=== PATIENT | female | born 1975 | race African-American/Black ===

== ENCOUNTER 2017-02-09 09:23 | Inpatient (IN) ==
[2017-02-09] MEDS ORDERED: ONDANSETRON 4 MG/2 ML VIAL IV STA (09:43)
[2017-02-09] MEDS ORDERED: HYDROmorphone 2 MG/1 ML VIAL IV STA (09:43)
[2017-02-09] MEDS ORDERED: SODIUM CHLORIDE 0.9% 1,000 ML IV STA (09:43)
--- NOTE | 2017-02-09 10:01 | Emergency Department Note ---
Claudia Posadas Ashley, am scribing for, and in the presence of, Shree Jernigan MD 09 :58. Rere Posadas James D, MD, personally performed the services described in this documentation, ascribed by Sonya Taylor in my presence, and it is both accurate and complete . Arrival - Arrival Chief Complaint: Abdominal / Flank Pain Stated Complaint: severe stomach pain/back pain ED Nursing Triage Note: Pt states that she is having upper abd pain with nausea onset x 1 week - pt states that the pain is radiating to her back area Mode of Arrival: Ambulatory Limitations: No Limitations Source: Patient Time Seen by Provider: 02/09/17 09:41 - History of Present Illness HPI Narrative: Ms. Murry, a 41 year old AAF, presents with 5 day history of a new intermittent worsening upper abdominal pain accompanied with nausea. The pain radiates through to her upper back, but does not go to her arms or neck. She is so nauseous that she does not want to eat or drink, and the pain is worse with PO intake. She denies EtOH use, diarrhea, fever, CP, SOB, and other pains today. Onset (ago): day(s) (5) Consistency: intermittent Severity: moderate Quality: dull Date of Last Menstrual Period: hyster Allergies/Adverse Reactions: Allergies Allergy/AdvReac Type Severity Reaction Status Date / Time No Known Allergies Allergy Unverified 02/09/17 09:30 Review of System - Review of System Constitutional: Absent: chills, fever Eyes: Present: as per HPI Head/Ears/Nose/Throat: Absent: epistaxis, nasal drainage Respiratory: Absent: cough, respiratory distress Cardiovascular: Absent: chest pain, palpitations Gastrointestinal: Present: abdominal pain, nausea, vomiting. Absent: diarrhea Genitourinary female: Present: as per HPI Musculoskeletal: Present: upper back pain. Absent: lower back pain, neck pain Skin: Present: as per HPI Neurological: Absent: headache, weakness, numbness, paresthesias Psychiatric: Present: as per HPI Endocrine: Present: as per HPI Hematological/Lymphatic: Present: as per HPI Allergic/Immunologic: Present: as per HPI Medical,Surgical,& Family Hx - Medical History Cardio: No history of: Hypertension Endocrine: No history of: Diabetes Mellitus (IDDM), Diabetes Mellitus (NIDDM) Respiratory: No history of: Asthma - Surgical History Thoracic Surgeries: Patient denies;: Nephrectomy - Family History Family History: noncontributory - Social History Smoking Status: Never smoker Frequency of Alcohol Use: None Type of Drug Use: None Functional capacity: independent ambulation Exam Vital Signs: Vital Signs Temperature 97.4 F L 02/09/17 09:41 Pulse Rate 75 02/09/17 09:41 Respiratory Rate 20 02/09/17 09:41 Blood Pressure 137/87 02/09/17 09:41 O2 Sat by Pulse Oximetry 98 02/09/17 09:30 GENERAL: This is a well-nourished well-developed black female in no apparent distress. VITAL SIGNS: Reviewed HEENT: Head is atraumatic and normocephalic. Pupils are equal round react to light. Extraocular movements are intact. Oropharynx is benign with moist mucous membranes. NECK: Neck is soft and supple without tenderness. There are no masses. There is no lymphadenopathy. LUNGS: Lungs are clear to auscultation. Chest rises symmetrically. There is no chest wall tenderness. CV: Heart is regular rate and rhythm without murmurs rubs or gallops. ABDOMEN: Abdomen is soft, minimal epigastric tenderness to palpation without rebound or guarding. There are no abdominal abnormal masses palpated. There is no organomegaly. Bowel sounds are present and active. SKIN: Skin is warm and dry. No rash. EXTREMITIES: Patient has full range of motion without tenderness. There is no pedal edema. NEUROLOGIC: Awake alert and oriented 4. Cranial nerves II through XII are grossly intact. Motor is 5 over 5 in all extremities bilaterally. Course - Consultations Consultation #1: Discussed with Dr. Rockwell. Patient will be seen in the emergency department. Time: 11:37 Results - Labs CBC & BMP: 02/09/17 09:55 02/09/17 09:55 Lab Results: I have reviewed the patients labs Labs: Laboratory Tests 02/09/17 02/09/17 09:55 09:55 Total Bilirubin 2.50 H AST 108 H ALT 122 H Alkaline Phosphatase 169 H Troponin I < 0.015 Lipase 129.0 Urine WBC 6 - Diagnostic Findings Procedure: Abdominal x-ray: image reviewed by me (Nonspecific gas pattern, no free air, gas in the right), Chest x-ray: image reviewed by me (No infiltrates, no pleural effusions.), Ultrasound: report reviewed by me (Gallbladder ultrasound: Multiple gallstones with gallbladder wall thickening consistent with cholecystitis.) Critical Care Time Critical Care Time: No Disposition Clinical Impression: Epigastric pain, Cholelithiasis with cholecystitis Case discussed with: patient Disposition: Still a Patient Condition: Stable Time of Disposition: 11:37
[2017-02-09 10:08] LABS: Basophils % 0.6 % (0.0-0.8); Eosinophils # 0.1 10*3/uL (0.0-0.87); Eosinophils % 1.5 % (0.00-10.9); Hematocrit 36.1 VOL% (35.7-47.0); Hemoglobin 11.9 GM/DL (12.0-16.0); Immature Granulocytes % 0.4 %; Immature Granulocytes Absolute 0.02 #; Lymphocytes # 1.3 10*3/uL (1.4-4.0); Lymphocytes % 26.9 % (21.3-54.2); Mean Corpuscular Hemoglobin 27 PG (27-34); Mean Corpuscular Volume 82.4 FL (87-102); Mean Platelet Volume 10.7 FL (9.6-12.0); Monocytes # 0.5 10*3/uL (0.11-0.8); Monocytes % 9.6 % (1.7-12.7); Neutrophils # 2.9 10*3/uL (1.4-7.4); Platelet Count 265 T/CUMM (130-400); Red Blood Count 4.38 MC/CUMM (3.8-5.5); White Blood Count 4.8 T/CUMM (4-12)
[2017-02-09] MEDS ORDERED: HYDROmorphone 2 MG/1 ML VIAL ONE (10:15)
[2017-02-09] MEDS ORDERED: ONDANSETRON 4 MG/2 ML VIAL ONE ×2 (10:15→15:26)
--- NOTE | 2017-02-09 10:38 | Ultrasound Report ---
History his back and epigastric pain Hepatic size and echotexture is normal There are multiple small gallstones. Gallbladder wall measures up to 4 mm The common bile duct measures up to 9 mm. The distal common duct is obscured by bowel gas. Distal common duct stone could easily be obscured Visualized pancreas and proximal IVC and aorta are normal in size No right renal hydronephrosis seen Impression: 1. Cholelithiasis with mild nonspecific gallbladder wall thickening 2. Biliary ductal prominence. Correlation with laboratory values recommended PROCEDURE INTERPRETED AT [facility] [place] DEPARTMENT OF RADIOLOGY Final Report Signed by: Dr. Nelli Hayward
[2017-02-09 10:43] LABS: Apearance,Urine CLOUDY (Clear); Blood, Urine Negative (Negative); Glucose,Urine (UA) 50 mg/dL (Negative); Ketones,Urine 20 mg/dL (Negative); Mucus,Urine Many /LPF (Occasional); Nitrite,Urine Negative (Negative); Protein,Urine 30 MG/DL; Squamous Epithelial Cell,Urine Moderate /HPF (0-10); Urine Color Amber (Yellow); Urine Specific Gravity 1.025 (1.001-1.035); WBC,Urine 6 /HPF (0-6)
[2017-02-09 10:44] LABS: Bilirubin,Urine Small mg/dL (Negative)
[2017-02-09 10:51] LABS: Alanine Aminotransferase 122 U/L (13-56); Albumin 3.7 G/DL (3.4-5.0); Alkaline Phosphatase 169 U/L (45-117); Aspartate Amino Transferase 108 U/L (0-37); Blood Urea Nitrogen 4 MG/DL (7-18); Calcium 9.1 MG/DL (8.5-10.1); Glucose 102 MG/DL (74-106); Osmolality,Calculated 277.3 MOS/KG (273-304); Potassium 3.1 MMOL/L (3.5-5.1); Sodium 141 MMOL/L (136-145); Total Protein 7.8 G/DL (6.4-8.3); Troponin I Only < 0.015 NG/ML (0.00-0.045)
--- NOTE | 2017-02-09 11:31 | XRay Report ---
Exam: Chest 2 views Date: February 09, 2017 at 10:51 AM Comparison: None Reason: Epigastric pain Findings: The cardiac silhouette is upper normal in size, possibly secondary to the poor inspiratory depth. No focal consolidation, pneumothorax or pleural effusion is identified. No acute osseous process is seen. Impression: No acute cardiopulmonary process is identified. PROCEDURE INTERPRETED AT [facility] DEPARTMENT OF RADIOLOGY Final Report Signed by: Dr. Ventura Huntley
--- NOTE | 2017-02-09 11:32 | XRay Report ---
Referring Physician: Shree Jernigan Exam: XR abdomen 2V Date: February 09, 2017 at 10:51 AM Reason: Epigastric pain Comparison: None Findings: There is no evidence of bowel obstruction or free air. The renal shadows are largely obscured. There are several small calcifications within the pelvis, which are favored to represent pelvic phleboliths. No acute osseous process is seen. Impression: No acute process is identified. PROCEDURE INTERPRETED AT [facility] DEPARTMENT OF RADIOLOGY Final Report Signed by: Dr. Ventura Huntley
--- NOTE | 2017-02-09 13:06 | General Surg History&Physical ---
Assessment and Plan (1) Cholelithiasis with cholecystitis Status: Acute Assessment and plan: Impression: Acute cholecystitis with choledocholithiasis next Plan: LFTs elevated and her common bile duct is dilated. She is very tender in the right upper quadrant with mild gallbladder wall thickening. I suspect she has acute cholecystitis with choledocholithiasis. I discussed the case with Dr. marion who plans for ERCP in the morning. We'll admit give her clear liquids and start antibiotics. Current Visit: Yes History of Present Illness Chief complaint: abdominal pain History of present illness: Ms. Murry is a 41 year old female with a one-week history of epigastric and right upper quadrant abdominal pain. She states the episode initially started last week when she felt a hot spell followed by epigastric and right upper quadrant abdominal pain after she ate. The pain radiated to the right flank. The pain subsided and returned again 3 days later after she ate something else. It has been fairly constant since then. She has periods of nausea but no vomiting. She states she is otherwise healthy and takes no medication. She has no chest pain or heart problems. She denies shortness of breath but states it only hurts to take a deep breath because of the abdominal pain experienced. Allergies Allergy/AdvReac Type Severity Reaction Status Date / Time No Known Allergies Allergy Unverified 02/09/17 09:30 Medical,Surgical,& Family Hx - Medical History Medical History: noncontributory Cardio: No history of: Hypertension Endocrine: No history of: Diabetes Mellitus (IDDM), Diabetes Mellitus (NIDDM) Respiratory: No history of: Asthma - Surgical History Thoracic Surgeries: Patient denies;: Nephrectomy - Social History Smoking Status: Never smoker Frequency of Alcohol Use: None Type of Drug Use: None Exam - Constitutional Vitals: Period Temp Pulse Resp BP Sys/Leija Pulse Ox Last 24 Hr 97.4 F-97.4 F 75-75 20-20 137-137/87-87 98 General appearance: no acute distress - Head Head exam: Present: normocephalic - Neck Neck exam: Present: normal inspection - Respiratory Respiratory exam: Present: clear to auscultation bilaterally - Cardiovascular Cardiovascular exam: Present: RRR - GI/Abdominal GI/Abdominal exam: Present: soft (tender to palpation in the epigastric and right upper quadrant. Positive Watkins's. Obese but I don't detect distention. No peritoneal signs.) - Extremities Exam Extremities exam: Present: normal inspection - Neurological Exam Neurological exam: Present: alert Speech: Present: normal - Skin Skin exam: Present: normal color 12 point system: reviewed and no additional remarkable complaints except as stated Results - Labs CBC & BMP: 02/09/17 09:55 02/09/17 09:55 Lab Results: I have reviewed the past 24 hour labs
--- NOTE | 2017-02-09 13:12 | Gastrointestinal Consult Note ---
Assessment and Plan (1) Cholelithiasis with cholecystitis Status: Acute Assessment and plan: 4/6-1 week history of right upper quadrant abdominal pain radiating to back with nausea and vomiting. Findings on gallbladder ultrasound of cholelithiasis with dilated common bile duct at 9 mm. Elevated LFTs. Plan for ERCP tomorrow morning and tentative laparoscopic cholecystectomy to follow tomorrow afternoon by Dr. Rockwell. Plan an addendum to followed by Dr. Daniels. Current Visit: Yes History of Present Illness Chief complaint: Abdominal pain, nausea, vomiting History of present illness: Ms. Murry is a 41 year old female who presented to the ER with a one-week history of right upper quadrant abdominal pain with associated nausea and vomiting. Patient states she was in her usual state of health until a week ago when she had a sudden onset of right upper quadrant abdominal pain that radiated around to her back. This was also associated with some nausea and vomiting. Patient states this is continued over the past week in which the pain has been constant however wavering in severity. She states that she has eaten very little since onset of pain due to it worsened her symptoms. She denies any fever or chills but states when she does have the pain she becomes diaphoretic. Patient states the pain at times prevents her from breathing deep as well. On admission she was found to have elevated LFTs and a gallbladder ultrasound she was noted to have cholelithiasis with nonspecific gallbladder wall thickening and a common bile duct at 9 mm. She takes no routine medications and states that she is in good health. Allergies Allergy/AdvReac Type Severity Reaction Status Date / Time No Known Allergies Allergy Unverified 02/09/17 09:30 Medical,Surgical,& Family Hx - Medical History Cardio: No history of: Hypertension Endocrine: No history of: Diabetes Mellitus (IDDM), Diabetes Mellitus (NIDDM) Respiratory: No history of: Asthma - Surgical History Thoracic Surgeries: Patient denies;: Nephrectomy - Social History Smoking Status: Never smoker Frequency of Alcohol Use: None Type of Drug Use: None 12 point system: reviewed and no additional remarkable complaints except as stated - Constitutional Constitutional: Present: as per HPI - EENT Eyes: Present: as per HPI Ears: Present: as per HPI Nose, mouth and throat: Present: as per HPI - Cardiovascular Cardiovascular: Present: as per HPI - Respiratory Respiratory: Present: as per HPI - Gastrointestinal Gastrointestinal: Present: as per HPI, abdominal pain, nausea, vomiting - Genitourinary Genitourinary: Present: as per HPI - Musculoskeletal Musculoskeletal: Present: as per HPI - Neurological Neurological: Present: as per HPI - Psychiatric Psychiatric: Present: as per HPI - Endocrine Endocrine: Present: as per HPI - Hematologic/Lymphatic Hematologic/Lymphatic: Present: as per HPI Exam - Constitutional Vitals: Period Temp Pulse Resp BP Sys/Leija Pulse Ox Last 24 Hr 97.4 F-97.4 F 75-75 20-20 137-137/87-87 98 General appearance: normal weight, no acute distress - Head Head exam: Present: normal inspection, normocephalic - Eye Eye exam: Present: other (Lids and conjunctive are unremarkable). Absent: scleral icterus - ENT ENT exam: Present: normal exam, normal oropharynx - Neck Neck exam: Present: normal inspection - Respiratory Respiratory exam: Present: clear to auscultation bilaterally. Absent: rales, rhonchi, wheezes - Cardiovascular Cardiovascular exam: Present: regular rate and rhythm. Absent: diastolic murmur , JVD, systolic murmur - GI/Abdominal GI/Abdominal exam: Present: normal bowel sounds, tenderness, soft. Absent: ascites, distended, mass, organomegaly - Extremities Exam Extremities exam: Present: normal inspection, full ROM - Back Exam Back exam: Present: normal inspection - Neurological Exam Neurological exam: Present: alert, oriented X3 - Psychiatric Psychiatric exam: Present: normal affect, normal mood - Skin Skin exam: Present: normal color, warm, dry Results - Labs CBC & BMP: 02/09/17 09:55 02/09/17 09:55 Lab Results: I have reviewed the past 24 hour labs - Diagnostic Findings Procedure: Ultrasound: report reviewed by me
[2017-02-09] MEDS ORDERED: ENOXAPARIN 100 MG/ML SYRINGE SUBCUT ONE (15:25)
[2017-02-09] MEDS ORDERED: MORPHINE 2 MG/1 ML SYRINGE ONE (15:26)
[2017-02-09] MEDS ORDERED: NITROGLYCERIN 2% OINT 1 INCH/GM PACK TOP ONE (15:26)
[2017-02-09] MEDS ORDERED: ASPIRIN 325 MG TABLET ONE (15:26)
[2017-02-09] MEDS ORDERED: ONDANSETRON 4 MG/2 ML VIAL IV PRN (16:05)
[2017-02-09] MEDS ORDERED: ACETAMINOPHEN 325 MG TABLET PO PRN (16:05)
[2017-02-09] MEDS: PIPERACILLIN/TAZOBACTAM 3,375 MG in SODIUM CHLORIDE 0.9% 100 ML IV SCH (17:09)
[2017-02-09] MEDS: DOCUSATE SODIUM 100 MG CAPSULE PO SCH (20:38)
[2017-02-10] MEDS: PIPERACILLIN/TAZOBACTAM 3,375 MG in SODIUM CHLORIDE 0.9% 100 ML IV SCH ×3 (00:53→17:15)
[2017-02-10] MEDS: DEXTROSE 5% NACL 0.45% 1,000 ML IV SCH ×3 (00:53→23:35)
[2017-02-10 08:03] LABS: Basophils % 0.4 % (0.0-0.8); Eosinophils # 0.1 10*3/uL (0.0-0.87); Eosinophils % 2.2 % (0.00-10.9); Hematocrit 32.1 VOL% (35.7-47.0); Hemoglobin 10.3 GM/DL (12.0-16.0); Immature Granulocytes % 0.4 %; Immature Granulocytes Absolute 0.02 #; Lymphocytes # 1.3 10*3/uL (1.4-4.0); Lymphocytes % 28.9 % (21.3-54.2); Mean Corpuscular HGB Conc 32.1 GM/DL (32-36); Mean Corpuscular Hemoglobin 27 PG (27-34); Mean Corpuscular Volume 83.6 FL (87-102); Mean Platelet Volume 10.9 FL (9.6-12.0); Monocytes # 0.4 10*3/uL (0.11-0.8); Monocytes % 8.9 % (1.7-12.7); Neutrophils # 2.7 10*3/uL (1.4-7.4); Neutrophils % 59.2 % (38.7-73.9); Platelet Count 232 T/CUMM (130-400); Red Blood Count 3.84 MC/CUMM (3.8-5.5); Red Cell Distribution Width 14.4 % (9.3-17.3); White Blood Count 4.5 T/CUMM (4-12)
--- NOTE | 2017-02-10 08:40 | General Surgery Progress Note ---
Assessment and Plan (1) Cholelithiasis with cholecystitis Status: Acute Assessment and plan: Impression: Acute cholecystitis with choledocholithiasis next Plan: For ERCP today. Plan for cholecystectomy Monday. Current Visit: Yes Subjective Patient reports: Present: no new complaints Narrative: Pain controlled. She is nothing by mouth for ERCP today. Exam - Constitutional Vitals: Period Temp Pulse Resp BP Sys/Leija Pulse Ox Last 24 Hr 97.1 F-98.7 F 62-80 18-19 120-139/63-89 95-98 General appearance: no acute distress - Head Head exam: Present: normocephalic - ENT Mouth exam: Present: normal external inspection - Neck Neck exam: Present: normal inspection - Respiratory Respiratory exam: Present: clear to auscultation bilaterally - Cardiovascular Cardiovascular exam: Present: RRR - GI/Abdominal GI/Abdominal exam: Present: soft (tenderness in the right upper quadrant unchanged. No peritoneal signs.) - Extremities Exam Extremities exam: Present: normal inspection - Back Exam Back exam: Present: normal inspection - Neurological Exam Neurological exam: Present: alert, oriented X3 Speech: Present: normal - Skin Skin exam: Present: normal color Results - Labs CBC & BMP: 02/10/17 07:39 02/10/17 07:39
[2017-02-10] MEDS: DOCUSATE SODIUM 100 MG CAPSULE PO SCH ×2 (09:30→21:26)
[2017-02-10] MEDS ORDERED: fentaNYL 100 MCG/2 ML VIAL ONE (13:39)
[2017-02-10] MEDS ORDERED: MIDAZOLAM 2 MG/2 ML VIAL ONE (13:39)
--- NOTE | 2017-02-10 14:24 | History and Physical Update ---
History and Physical Update - History and Physical H&P was reviewed, the patient examined and there: are no changes in the patients condition since last H&P was completed. - Physical Exam Mental Status: alert and oriented Heart: regular rate and rhythm Lung: clear to auscultation Abdomen: within normal limits Vitals: within normal limits
[2017-02-10] MEDS ORDERED: GLUCAGON 1 MG VIAL ONE (14:26)
--- NOTE | 2017-02-10 14:39 | Operative Note ---
Date of procedure: 02/10/17 Pre-op diagnosis: Elevated liver tests, gallstones, dilated common bile Procedure: Procedure: Endoscopic retrograde cholangiopancreatography with common bile duct sphincterotomy and stone/sludge removal with balloon Brief clinical abstract: Patient is a 41-year-old female admitted with biliary type pain. She is noted to have elevated liver tests with gallstones on ultrasound and dilated common bile duct. Procedure findings: After informed consent was obtained, patient was placed in the prone position. Therapeutic video duodenoscope was inserted into the upper esophagus and blind fashion with no resistance encountered. Esophageal mucosa appeared normal. Stomach appeared normal including retroflexed view. The pyloric channel, duodenal bulb, second and third portion of the duodenum including the appearance of the ampulla were normal. Common bile duct was selectively cannulated with sphincterotome. Biliary tree was filled with contrast. Common bile duct and common hepatic duct were dilated to over 12 mm maximally. Intrahepatics were mildly dilated. Filling defect was visible in the distal common bile duct consistent with stone/sludge 0.035 inch guidewire was advanced into the right intrahepatic system. Common bile duct sphincterotomy was performed to approximately 10 mm diameter. Sphincterotome was withdrawn. Occlusion balloon was advanced over the wire into the proximal common hepatic duct and dragged distally. Moderate amount of sludge like stone material passed into the duodenum. 3 separate passes were made with a balloon. Occlusion cholangiogram was obtained on final pass. Some air bubbles were noted but no stones seen. There was excellent drainage through the sphincterotomy opening. 12 mm occlusion balloon passed through the sphincterotomy with slight resistance. Pancreatogram was not obtained. Impression: #1 choledocholithiasis-status post endoscopic removal as above #2 dilated biliary tree related to #1 Recommendations: Cholecystectomy as planned. Anesthesia: MAC Surgeon / Physician: Michael Daniels Estimated blood loss: none Specimens: none sent Condition: stable Disposition: post procedure unit Results - Labs CBC & BMP: 02/10/17 07:39 02/10/17 07:39 Discharge Plan - Discharge Medications No Action Dextroamphetamine/Amphetamine [Adderall 15 mg Tablet] 15 mg PO BID PRN PRN Reason: Anxiety - Follow Up or Referral - Forms/Instructions
[2017-02-10] MEDS ORDERED: LIDOCAINE 1% 5 ML VIAL ONE (14:48)
[2017-02-10] MEDS ORDERED: PROPOFOL 200 MG/20 ML VIAL IV ONE (14:48)
--- NOTE | 2017-02-10 14:50 | Anesthesia ---
Anesthesia Post OP - Post Ansesthetic Evaluation Patient seen in post op: Yes Resp: within normal limits CV: within normal limits Mental: within normal limits Temp: within normal limits [id number]: within normal limits Nausea and Vomiting: within normal limits Pain: within normal limits
--- NOTE | 2017-02-10 15:07 | Fluoroscopy Report ---
[place] ERCP w sphincterotomy Indication: Abdominal pain. Elevated LFTs. ERCP: Fluoroscopy time 3 minutes 0 seconds, 15 images. Omnipaque 240, 20 cc injected. Findings: Balloon sweep of the CBD is performed through a presumed sphincterotomy. The common hepatic and common bile duct are minimally prominent, probably 10 mm diameter. There is no cystic duct filling. Last image, an air bubble is present in the distal CBD. Impression: Slightly prominent biliary collecting system as described. Balloon sweep and presumed sphincterotomy. PROCEDURE INTERPRETED AT [facility] DEPARTMENT OF RADIOLOGY Final Report Signed by: Hung Brower M.D.
[2017-02-10] MEDS: PANTOPRAZOLE 40 MG TABLET PO SCH (17:17)
[2017-02-11] MEDS: PIPERACILLIN/TAZOBACTAM 3,375 MG in SODIUM CHLORIDE 0.9% 100 ML IV SCH ×3 (01:55→17:16)
[2017-02-11 03:16] LABS: Basophils % 0.4 % (0.0-0.8); Eosinophils # 0.1 10*3/uL (0.0-0.87); Eosinophils % 2.4 % (0.00-10.9); Hematocrit 29.8 VOL% (35.7-47.0); Hemoglobin 9.8 GM/DL (12.0-16.0); Immature Granulocytes % 0.4 %; Immature Granulocytes Absolute 0.02 #; Lymphocytes # 1.6 10*3/uL (1.4-4.0); Lymphocytes % 31.7 % (21.3-54.2); Mean Corpuscular HGB Conc 32.9 GM/DL (32-36); Mean Corpuscular Hemoglobin 27 PG (27-34); Mean Corpuscular Volume 82.1 FL (87-102); Mean Platelet Volume 11.4 FL (9.6-12.0); Monocytes # 0.4 10*3/uL (0.11-0.8); Monocytes % 8.7 % (1.7-12.7); Neutrophils # 2.8 10*3/uL (1.4-7.4); Neutrophils % 56.4 % (38.7-73.9); Platelet Count 219 T/CUMM (130-400); Red Blood Count 3.63 MC/CUMM (3.8-5.5); Red Cell Distribution Width 14.4 % (9.3-17.3)
[2017-02-11 03:20] LABS: Bilirubin,Direct 0.7 MG/DL (0.0-0.20); Bilirubin,Indirect 0.4 MG/DL (0.0-1.0); Bilirubin,Total 1.1 MG/DL (0.2-1.0); Calcium 8.4 MG/DL (8.5-10.1); Osmolality,Calculated 282.8 MOS/KG (273-304); Potassium 3.3 MMOL/L (3.5-5.1); Total Protein 6.3 G/DL (6.4-8.3)
--- NOTE | 2017-02-11 08:38 | Event Note ---
02/11/2017. Patient is status post ERCP with sphincterotomy and removal of stones from the common duct. She is doing well and is hungry and will go ahead and resume some food this weekend. Abdomen is soft and nontender at this point. She is set up for surgery on Monday to remove the gallbladder.
[2017-02-11] MEDS: DOCUSATE SODIUM 100 MG CAPSULE PO SCH ×2 (11:22→20:37)
[2017-02-11] MEDS: PANTOPRAZOLE 40 MG TABLET PO SCH (11:22)
[2017-02-11] MEDS: DEXTROSE 5% NACL 0.45% 1,000 ML IV SCH (17:11)
[2017-02-12] MEDS: PIPERACILLIN/TAZOBACTAM 3,375 MG in SODIUM CHLORIDE 0.9% 100 ML IV SCH ×3 (01:18→17:29)
[2017-02-12 05:07] LABS: Basophils % 0.5 % (0.0-0.8); Eosinophils # 0.2 10*3/uL (0.0-0.87); Eosinophils % 2.7 % (0.00-10.9); Hematocrit 31.2 VOL% (35.7-47.0); Immature Granulocytes % 0.3 %; Immature Granulocytes Absolute 0.02 #; Lymphocytes # 1.9 10*3/uL (1.4-4.0); Lymphocytes % 32.2 % (21.3-54.2); Mean Corpuscular HGB Conc 32.1 GM/DL (32-36); Mean Corpuscular Hemoglobin 27 PG (27-34); Mean Corpuscular Volume 84.1 FL (87-102); Mean Platelet Volume 11.2 FL (9.6-12.0); Monocytes # 0.4 10*3/uL (0.11-0.8); Monocytes % 7.2 % (1.7-12.7); Neutrophils # 3.4 10*3/uL (1.4-7.4); Neutrophils % 57.1 % (38.7-73.9); Platelet Count 216 T/CUMM (130-400); Red Blood Count 3.71 MC/CUMM (3.8-5.5); Red Cell Distribution Width 14.2 % (9.3-17.3)
[2017-02-12 05:40] LABS: Albumin 2.9 G/DL (3.4-5.0); Bilirubin,Total 0.7 MG/DL (0.2-1.0); Calcium 8.3 MG/DL (8.5-10.1); Osmolality,Calculated 276.4 MOS/KG (273-304); Potassium 3.3 MMOL/L (3.5-5.1); Total Protein 6.5 G/DL (6.4-8.3)
[2017-02-12] MEDS: DOCUSATE SODIUM 100 MG CAPSULE PO SCH (09:06)
[2017-02-12] MEDS: PANTOPRAZOLE 40 MG TABLET PO SCH (09:15)
[2017-02-12] MEDS: DEXTROSE 5% NACL 0.45% 1,000 ML IV SCH ×3 (09:18→17:30)
--- NOTE | 2017-02-12 11:20 | Event Note ---
02/12/2017. Patient's afebrile and labs look in pretty good shape of the liver function studies still slightly elevated. She is for laparoscopic cholecystectomy in the morning and is ready for surgery.
[2017-02-13] MEDS: DEXTROSE 5% NACL 0.45% 1,000 ML IV SCH ×3 (01:29→15:23)
[2017-02-13] MEDS: PIPERACILLIN/TAZOBACTAM 3,375 MG in SODIUM CHLORIDE 0.9% 100 ML IV SCH ×3 (01:30→17:16)
[2017-02-13] MEDS: DOCUSATE SODIUM 100 MG CAPSULE PO SCH ×3 (01:31→20:49)
[2017-02-13] MEDS ORDERED: SODIUM CHLORIDE 0.9% 100 ML IV ONE (09:11)
[2017-02-13] MEDS: PANTOPRAZOLE 40 MG TABLET PO SCH (09:14)
[2017-02-13] MEDS ORDERED: LIDOCAINE 2%/EPI 20 ML VIAL ONE (14:18)
[2017-02-13] MEDS ORDERED: BUPIVACAINE MPF 0.25% /EPI 30 ML VIAL ONE (14:18)
[2017-02-13] MEDS ORDERED: TISSUE ADHESIVE 1 EACH APPLICATOR TOP ONE (14:18)
--- NOTE | 2017-02-13 16:07 | Event Note ---
Late entry: Patient seen at approximately 930 this morning No significant events over the weekend. She status post ERCP. She was doing well and her pain had improved. She still had moderate right upper quadrant tenderness but it was much improved. I discussed cholecystectomy with her and she wanted to proceed today as soon as possible. The procedure and has not performed and the anticipated recovery were all discussed. Risks of the procedure including bleeding, infection, damage to surrounding structures including the biliary tree, need for further surgery were all discussed in detail.
--- NOTE | 2017-02-13 16:17 | Operative Note ---
Date of procedure: 02/13/17 Pre-op diagnosis: acute cholecystitis, choledocholithiasis Post-op diagnosis: same Procedure: Procedure performed: #1 laparoscopic cholecystectomy with intraoperative cholangiogram #2 supervision and interpretation of fluoroscopy #3 laparoscopic lysis of adhesions #4 modifier 22. Procedure in detail: After informed consent was obtained the patient was taken operating suite and laid supine on the operating table. After general anesthesia was induced the abdomen was prepped and draped in usual sterile fashion. After procedural pause local anesthetic and straighten the skin and subcutaneous taste tissue just above the umbilicus. Incision was made and dissection carried down through skin and soft tissue. Fascia identified and grasped with Rossi's and elevated. Fascial incision was made and the abdominal cavity was entered bluntly. Finger sweep revealed no adhesions. Patel trocar was placed under direct visualization. Pneumoperitoneum achieved. Camera inserted. Bowel and mesentery were inspected and found be free of any violation. Next patient was placed in reverse Trendelenburg position and rotated to the left. There were significant adhesions in the right upper quadrant all along the liver edge and the anterior surface of the liver up to the abdominal wall. This continued along the liver edge all the way to the left lobe of the liver. There were other adhesions to the anterior abdominal wall in the region of the transverse colon. I safely placed 2 right upper quadrant trochars under visualization. Camera was moved to the lateral trocar site and then the adhesions were lysed. Once all the adhesions were lysed I could put the epigastric 12 mm trocar and under visualization. All the anterior adhesions from the liver to the abdominal wall were lysed so that the gallbladder could be retracted up over the edge of the liver. The gallbladder was identified and so retracted. The gallbladder was thick and mildly edematous. Infundibular gallbladder retracted toward the right hip. Dissection was then carried out from a lateral to medial approach and the triangle of Harrison. Cystic duct and cystic artery were identified. Cystic duct appeared dilated. The artery appeared somewhat larger than usual. I was able to create a window at the junction of the cystic duct and neck of the gallbladder. Then removed the grasper to occlude the gallbladder at the junction with the cystic duct and made a partial transection on the cystic duct. The cystic duct was thick walled. Countered and a cholangiocatheter inserted and secured with a clip. A second clip was ejected from the clip gun and later removed after the cholangiogram. Cholangiogram performed. Common bile duct appeared dilated but contrast was seen easily flowing into the small bowel. I placed some mild pressure in the region of the distal common bile duct and obtained retrograde flow. The duct appeared patent without any obvious filling defects. The insertion of the catheter appeared fairly far away from the dilated duct with its tip near the confluence of the cystic duct and common bile duct. The cystic duct was dilated it was nowhere near as dilated as the common bile duct. The cholangiocatheter was removed and 2 clips placed across the cystic duct just distal to the partial transection and the transection was completed. The clips appeared to course completely over the duct. Cystic artery was triple clipped and transected and the gallbladder was removed from the gallbladder fossa using hook cautery and placed in the Endo Catch sac. Right upper quadrant was thoroughly irrigated and suctioned. Clips inspected found be intact no leakage of bilious or sanguinous fluid. A 10 Vincentian flat Octavio drain was then placed in the gallbladder fossa and brought out through one of the 5 mm trocar sites and secured in place with 2-0 nylon suture. The remaining trochars were removed as the abdomen desufflated. The gallbladder retrieved with the Endo Catch sac to the Patel trocar site. There was good hemostasis throughout the procedure and the fascia was closed with 0 Vicryl [id number] interrupted suture. Wounds were irrigated and suction skin closed with andrew. Sterile dressings applied. Patient was extubated and taken recovery room in stable condition. All lap and needle counts were correct at the end of the case. I'm adding modifier 22 for the extensive time and effort required beyond a normal procedure of this type. This was due to the adhesions in the right upper quadrant which required tedious adhesio lysis prior to being able to proceed with cholecystectomy. Easily double the operative time. Anesthesia: GETA Surgeon / Physician: Moisés Rockwell Estimated blood loss: other (less than 25 mL) Specimens: other (gallbladder) Condition: stable Disposition: PACU Results - Labs CBC & BMP: 02/12/17 04:49 02/12/17 04:49 Discharge Plan - Discharge Medications No Action Dextroamphetamine/Amphetamine [Adderall 15 mg Tablet] 15 mg PO BID PRN PRN Reason: Anxiety - Follow Up or Referral Follow Up: Moisés Rockwell MD [Physician] - - Forms/Instructions Instructions: Laparoscopic Cholecystectomy (DC)
[2017-02-13] MEDS ORDERED: SEVOFLURANE 1 UNIT/15 MINUTE INH ONE (16:28)
[2017-02-13] MEDS ORDERED: PROPOFOL 200 MG/20 ML VIAL IV ONE (16:28)
[2017-02-13] MEDS ORDERED: ONDANSETRON 4 MG/2 ML VIAL ONE (16:29)
[2017-02-13] MEDS ORDERED: GLYCOPYRROLATE 0.4 MG/2 ML VIAL ONE (16:29)
[2017-02-13] MEDS ORDERED: MIDAZOLAM 2 MG/2 ML VIAL ONE (16:29)
[2017-02-13] MEDS ORDERED: KETOROLAC 30 MG/1 ML VIAL ONE (16:29)
[2017-02-13] MEDS ORDERED: NEOSTIGMINE 10 MG/10 ML VIAL ONE (16:30)
[2017-02-13] MEDS ORDERED: ACETAMINOPHEN 1,000 MG/100 ML VIAL IV ONE (16:30)
[2017-02-13] MEDS ORDERED: ROCURONIUM 100 MG/10 ML VIAL IV ONE (16:30)
[2017-02-13] MEDS ORDERED: LACTATED RINGERS 1,000 ML IV ONE (16:30)
[2017-02-13] MEDS ORDERED: ONDANSETRON 4 MG/2 ML VIAL IV PRN (16:31)
[2017-02-13] MEDS: HYDROmorphone 2 MG/1 ML VIAL IV PRN ×4 (16:34→16:48)
--- NOTE | 2017-02-13 16:38 | Anesthesia ---
Anesthesia Post OP - Post Ansesthetic Evaluation Patient seen in post op: Yes Resp: within normal limits CV: within normal limits Mental: within normal limits Temp: within normal limits Onaf-Gl-Lqpdahuff: within normal limits Nausea and Vomiting: within normal limits Pain: within normal limits
--- NOTE | 2017-02-13 18:05 | Fluoroscopy Report ---
[place] cholangiogram in surgery Indication: Cholecystectomy. Intraoperative cholangiogram: Fluoroscopy time 68 seconds, 7 images. Intraoperative cholangiogram performed via cystic duct remnant contrast injection. There appears to be a persistent filling defect at the junction between the common hepatic and common bile ducts at the cystic duct remnant in multiple views. Spillage of contrast into small bowel is present. Intrahepatic biliary radicals are unremarkable. No strictures are shown. Impression: Possible residual stone mid extra hepatic biliary collecting system. PROCEDURE INTERPRETED AT [facility] DEPARTMENT OF RADIOLOGY Final Report Signed by: Hung Brower M.D.
[2017-02-13] MEDS: MORPHINE 2 MG/1 ML SYRINGE IV PRN (20:28)
[2017-02-14] MEDS: PIPERACILLIN/TAZOBACTAM 3,375 MG in SODIUM CHLORIDE 0.9% 100 ML IV SCH ×3 (00:48→17:00)
[2017-02-14] MEDS: MORPHINE 2 MG/1 ML SYRINGE IV PRN ×2 (00:53→08:04)
[2017-02-14 03:14] LABS: Albumin 3.2 G/DL (3.4-5.0); Bilirubin,Direct 0.4 MG/DL (0.0-0.20); Bilirubin,Indirect 0.4 MG/DL (0.0-1.0); Bilirubin,Total 0.8 MG/DL (0.2-1.0); Total Protein 6.4 G/DL (6.4-8.3)
[2017-02-14] MEDS: DEXTROSE 5% NACL 0.45% 1,000 ML IV SCH ×3 (04:28→16:05)
[2017-02-14] MEDS: PANTOPRAZOLE 40 MG TABLET PO SCH (08:08)
[2017-02-14] MEDS: DOCUSATE SODIUM 100 MG CAPSULE PO SCH (08:10)
--- NOTE | 2017-02-14 08:45 | Event Note ---
Afebrile vital signs stable. Patient's doing well. She feels sore. She is tolerating diet. She has no nausea or vomiting. On exam her abdomen is soft and appropriately tender and nondistended. Incisions look good. ADEOLA drain with minimal serosanguineous output. There is no bile present. LFTs continue to normalize Plan: Discharge home later today. Discharge instructions given. She will keep the ADEOLA drain and our removed next week in the office.
--- NOTE | 2017-02-14 09:42 | Discharge Summary ---
Hospital Course - Hospital Course Hospital Course: Patient is a 41-year-old female presenting to the emergency department with cholecystitiS and choledocholithiasis. She underwent ERCP with Dr. Daniels on 02/10/2017 at which time he performed a sphincterotomy with stone and sludge removal with balloon. She tolerated this procedure well without complication. She subsequently underwent l laparoscopic cholecystectomy with cholangiogram and lysis of adhesions with Dr. Moisés Castellon on 02/13/2017 without complication. Postoperatively, her pain was controlled, she mobilized without difficulty, tolerating oral intake without difficulty, voiding without difficulty. Bowel movement yesterday. - Time spent with patient Time with patient DS: Less than 30 minutes Diagnosis - Discharge Diagnosis (1) Cholelithiasis with cholecystitis Status: Acute Specialty Discharge - Follow Up or Referrals Follow up with: Moisés Rockwell MD [Physician] - 02/21/17 10:15 am Discharge Plan - Discharge Data Condition at Discharge: Stable Discharge Diet: advance to your usual diet Activity: no lifting (No lifting, pushing or pulling > 10lb) Hygiene: may shower Driving: other (No driving while taking narcotics) Contact your physician if you experience:: fever over 101, Difficulty voiding, Redness or swelling, Nausea/Vomiting, Shortness of breath, Bleeding, pain uncontrolled by pain medications Wound / Dressing Care Instructions: Keep surgical incision clean, dry and covered. Change drain dressing daily. ADEOLA drain - empty twice daily and keep journal of amount emtpied. - Discharge Medications New HYDROcodone/ACETAMIN 7.5-325 [[place] 7.5-325] 1 tablet PO Q4H PRN #30 tablet PRN Reason: Pain Moderate To Severe (4-10) Continue Dextroamphetamine/Amphetamine [Adderall 15 mg Tablet] 15 mg PO BID PRN PRN Reason: Anxiety - Follow Up or Referral Follow Up: Moisés Rockwell MD [Physician] - 02/21/17 10:15 am - Forms/Instructions Instructions: Laparoscopic Cholecystectomy (DC)Kenneth Drain Care Instructions Exam - Constitutional Vitals: Period Temp Pulse Resp BP Sys/Leija Pulse Ox Last 24 Hr 97.9 F-98.7 F 55-78 14-20 123-148/61-100 94-100 General appearance: no acute distress - Respiratory Respiratory exam: Present: clear to auscultation bilaterally - Cardiovascular Cardiovascular exam: Present: regular rate and rhythm - GI/Abdominal GI/Abdominal exam: Present: hypoactive bowel sounds, soft. Absent: distended - Extremities Exam Extremities exam: Absent: calf tenderness, edema - Neurological Exam Neurological exam: Present: alert, oriented X3 - Psychiatric Psychiatric exam: Present: normal affect, normal mood - Skin Skin exam: Present: normal color, warm Discharge Results Procedures and tests throughout hospitalization: 1. ERCP with sphinterotomy and balloon stone/sludge removal 2. Laporoscopic cholecystectomy with cholangiogram; lysis of adhesions Labs on day of discharge: Labs from last 24 hours 02/14/17 02:10 Total Bilirubin 0.80 Direct Bilirubin 0.40 H Indirect Bilirubin 0.4 AST 68 H ALT 96 H Alkaline Phosphatase 103 Total Protein 6.4 Albumin 3.2 L DS: Provider Date of admission: 02/09/17 13:31 Primary care physician: . No PCP Attending physician on admission: Moisés Rockwell MD Consults: 02/09/17 16:08 Consult to Pharmacy [CONS] Routine Reason for Pharmacy Consult: Adjust Meds Renal Funct 02/09/17 17:07 Consult to Pastoral Services [CONS] Routine Comment: Pastoral Screen: Request Fold Skiver Visit Pastoral Screen Source of Request: Patient Discharging clinician: Georgiana Corbett PA-C
[2017-02-14 16:39] VITALS: BP 127/71
--- NOTE | 2017-02-15 11:19 | Pathology Report from [facility] ---
ACCESSION # : [id number] PATIENT NAME : Luis Felipe Murry ORDERING DR : Moisés Rockwell MD CLINICAL HX: Cholecystitis POST-OP DX: Same SPECIMEN INFO: Gallbladder GROSS DESCRIPTION: The specimen is received in formalin labeled with the patient 's name Luis Felipe Murry and "GALLBLADDER" consists of an intact gallbladder measuring 9 x 3.3 cm. The serosa is smooth and worthy pink. The gallbladder wall has a thickness of up to 0.5 cm. The mucosa is erythematous with focal ulceration. The lumen contains thick viscous white worthy brown bile admixed with reddish brown stones measuring 3.8 x 2.5 cm. The largest stone measures 0.5 cm. Stones are located within the area of the cystic duct. Slipcover Cutter tissue is submitted in one cassette. DIAGNOSIS FOR LUIS FELIPE MURRY: GALLBLADDER, CHOLECYSTECTOMY: Acute and chronic cholecystitis. Cholelithiasis. SERVICE DATE: 02/14/2017 REPORT DATE: 02/15/2017 PATHOLOGIST: Anastasia Tomas
== END 2017-02-14 18:40 | disposition home or self-care (01) | DRG 418 ==
LOC: N.ED 09:23 → N.EDINP 13:31 → N.3E 15:46
PROVIDERS: ADMIT Surgery; ATTEND Surgery
PROC: ERCPWSP (ICD-10-PCS; 2017-02-10 12:05)
PROC: LAPCHOL (2017-02-13 14:41)